=== PATIENT | female | born 1985 | race Caucasian/White ===

== ENCOUNTER 2022-05-05 20:18 | Emergency (ER) | payer OTHER ==
[~2022-05-05] VITALS: Ht 160 cm; Wt 70.3 kg
[2022-05-05] MEDS ORDERED: ZOLOFT50 MG PO (23:58)
[2022-05-05] MEDS ORDERED: METOPROLOL SUCC25 MG PO (23:58)
== END 2022-05-06 | disposition home or self-care (01) ==
LOC: ER 20:18
DX: S09.90XA Unspecified injury of head, initial encounter (principal); S01.01XA Laceration without foreign body of scalp, initial encounter; W19.XXXA Unspecified fall, initial encounter
CPT/HCPCS: 12001; 70450; 90471; 90714; 99283-25; A9270